=== PATIENT | female | born 1975 | race Caucasian/White ===

== ENCOUNTER 2023-11-07 13:52 | Emergency (ER) | payer BC ==
[2023-11-07 14:14] VITALS: RESP 18
--- NOTE | 2023-11-07 14:45 | ED ---
Extremity Problem HPI - General Chief complaint: Extremity Problem,Nontraumatic Stated complaint: L Leg Pain Time Seen by Provider: 11/07/23 14:10 Source: patient, RN notes reviewed Limitations: no limitations - History of Present Illness Initial comments: 48-year-old female presents emergency department with chief complaint of left leg pain. Patient states she started having some discomfort and noticed that there is some swelling, redness increased warmth. She states the pain initially started behind her left knee. She denies any trauma denies any back pain denies any associated weakness as chest pain or shortness of breath no history of DVT. - Related Data Allergies Allergy/AdvReac Type Severity Reaction Status Date / Time No Known Allergies Allergy Verified 11/07/23 14:04 Review of Systems ROS Statement: Those systems with pertinent positive or pertinent negative responses have been documented in the HPI. ROS Other: All systems not noted in ROS Statement are negative. Past Medical History Past Medical History: No Reported History History of Any Multi-Drug Resistant Organisms: None Reported Past Surgical History: Appendectomy, Section Past Psychological History: No Psychological Hx Reported Smoking Status: Never smoker Past Alcohol Use History: None Reported Past Drug Use History: None Reported General Exam Limitations: no limitations General appearance: alert, in no apparent distress Head exam: Present: atraumatic, normocephalic, normal inspection Eye exam: Present: normal appearance, PERRL, EOMI. Absent: scleral icterus, conjunctival injection, periorbital swelling Respiratory exam: Present: normal lung sounds bilaterally. Absent: respiratory distress, wheezes, rales, rhonchi, stridor Cardiovascular Exam: Present: regular rate, normal rhythm, normal heart sounds. Absent: systolic murmur, diastolic murmur, rubs, gallop, clicks Extremities exam: Present: other (Left leg swelling, tenderness and increased warmth pulses are equal bilaterally varicosities noted on the right leg) Course Vital Signs 11/07/23 11/07/23 11/07/23 13:59 15:08 16:27 Temperature 97.8 F 98.4 F 98.1 F Pulse Rate 109 H 102 H 86 Respiratory 18 18 18 Rate Blood Pressure 172/99 148/98 154/85 O2 Sat by Pulse 93 L 97 99 Oximetry Medical Decision Making - Medical Decision Making Was pt. sent in by a medical professional or institution (, PA, [employer], urgent care, hospital, or skilled nursing...) When possible be specific @ -No Did you speak to anyone other than the patient for history (EMS, parent, family, police, friend...)? What history was obtained from this source @ -No Did you review nursing and triage notes (agree or disagree)? Why? @ -I reviewed and agree with nursing and triage notes Were old charts reviewed (outside hosp., previous admission, EMS record, old EKG, old radiological studies, urgent care reports/EKG's, skilled nursing records)? Report findings @ -No old charts were reviewed Differential Diagnosis (chest pain, altered mental status, abdominal pain women, abdominal pain men, vaginal bleeding, weakness, fever, dyspnea, syncope, headache, dizziness, GI bleed, back pain, seizure, CVA, palpatations, mental health, musculoskeletal)? @ -ED, cellulitis, superficial thrombophlebitis EKG interpreted by me (3pts min.). @ -None X-rays interpreted by me (1pt min.). @ -None done CT interpreted by me (1pt min.). @ -None done U/S interpreted by me (1pt. min.). @ -Ultrasound left leg showing evidence of superficial clot no evidence of DVT What testing was considered but not performed or refused? (CT, X-rays, U/S, la bs)? Why? @ -None What meds were considered but not given or refused? Why? @ -None Did you discuss the management of the patient with other professionals (professionals i.e. , PA, [employer], lab, RT, psych nurse, nursing home social worker, conference center coordinator, teacher, staff mine warfare officer, showcase maker)? Give summary @ -No Was smoking cessation discussed for >3mins.? @ -No Was critical care preformed (if so, how long)? @ -No Were there social determinants of health that impacted care today? How? (Homelessness, low income, unemployed, alcoholism, drug addiction, transportation, low edu. Level, literacy, decrease access to med. care, custodial, rehab)? @ -No Was there de-escalation of care discussed even if they declined (Discuss DNR or withdrawal of care, Hospice)? DNR status @ -No What co-morbidities impacted this encounter? (DM, HTN, Smoking, COPD, CAD, Cancer, CVA, ARF, Chemo, Hep., AIDS, mental health diagnosis, sleep apnea, morbid obesity)? @ -None Was patient admitted / discharged? Hospital course, mention meds given and route, prescriptions, significant lab abnormalities, going to OR and other pertinent info. @ -Discharge patient has left leg pain positive for superficial thrombus patient will be started anti-inflammatories, warm compresses advised to follow-up with PCP patient has multiple varicosities and may require vascular treatment in the future. Undiagnosed new problem with uncertain prognosis? @ -No Drug Therapy requiring intensive monitoring for toxicity (Heparin, Nitro, Insulin, Cardizem)? @ -No Were any procedures done? @ -No Diagnosis/symptom? @ -Superficial thrombophlebitis left leg Acute, or Chronic, or Acute on Chronic? @ -Acute Uncomplicated (without systemic symptoms) or Complicated (systemic symptoms)? @ -Uncomplicated Side effects of treatment? @ -No Exacerbation, Progression, or Severe Exacerbation? @ -No Poses a threat to life or bodily function? How? (Chest pain, [place], [place], pneumonia, PE, COPD, DKA, ARF, appy, cholecystitis, CVA, Diverticulitis, Homicidal, Suicidal, threat to staff... and all critical care pts) @ -No Disposition Clinical Impression: Superficial thrombophlebitis of left leg Disposition: HOME SELF-CARE Condition: Stable Instructions (If sedation given, give patient instructions): Superficial Thrombophlebitis (ED) Additional Instructions: Please return to emergency department for any worsening, changing of symptoms or any other concerns Is patient prescribed a controlled substance at d/c from ED?: No Referrals: None,Stated [Primary Care Provider] - 1-2 days Time of Disposition: 16:19
--- NOTE | 2023-11-07 15:44 | US ---
EXAMINATION TYPE: US venous doppler duplex LE LT DATE OF EXAM: 11/07/2023 3:12 PM COMPARISON: NONE CLINICAL INDICATION: Female, 48 years old with history of pain; Pain x 2 days. No hx of DVT. Patient does not take blood thinners. SIDE PERFORMED: Left TECHNIQUE: The lower extremity deep venous system is examined utilizing real time linear array sonog francoise with graded compression, doppler sonography and color-flow sonography. VESSELS IMAGED: Common Femoral Vein Deep Femoral Vein Greater Saphenous Vein * Femoral Vein Popliteal Vein Small Saphenous Vein * Proximal Calf Veins (* superficial vessels) Left Leg: No evidence of DVT. *Appears positive for SVT within left small saphenous vein at the lev el of the mid calf extending inferior into the lower calf. Color defect and internal echoes seen with in and SSV does not compress. IMPRESSION: 1. Left lower extremity ultrasound negative for deep venous thrombosis. 2. Note is made of thrombus within the superficial left small saphenous vein mid calf region
[2023-11-07 17:07] VITALS: BP 154/85; PULSE 86; TEMP 98.1
== END 2023-11-07 16:28 | disposition home or self-care (01) ==
LOC: EC 13:52
DX: I80.02 Phlebitis and thrombophlebitis of superficial vessels of left lower extremity (principal)
CPT/HCPCS: 99283

== ENCOUNTER → 2024-02-07 | Outpatient (CLI) | payer BC ==
--- NOTE | 2024-02-07 16:53 | US ---
EXAMINATION TYPE: US thyroid st tissue head/neck DATE OF EXAM: 02/07/2024 COMPARISON: NONE CLINICAL INDICATION: Female, 48 years old with history of E05.90 THYROTOXICOSIS; abn labs GLAND SIZE: Right Lobe: 7.1 x 4.5 x 4.5 cm Overall Parenchyma: heterogeneous Left Lobe: 7.7 x 4.0 x 4.3 cm Overall Parenchyma: heterogeneous Isthmus Thickness: 1.3 cm NODULES RIGHT: # of nodules measured on right: Multiple measured cluster inferior. 1. 5.1 X 2.5 x 5.1 cm, lower lateral, solid or almost completely solid, hypoechoic nodule, which i s wider than tall, with smooth margins, without echogenic foci. TR 4. Prior size: no previous LEFT: # of nodules measured on left: Multiple measured cluster inferior. 1. 4.7 X 4.3 x 3.3 cm, lower lateral, solid or almost completely solid, hypoechoic nodule, which is wider than tall, with smooth margins, without echogenic foci. TR 4. Prior size: No previous ISTHMUS: # of nodules measured in the isthmus: 0 Bilateral neck scanned, no evidence of lymphadenopathy. IMPRESSION: Multinodular goiter as described above. ACR TI-RADS LEVEL: TR-RADS 4 - Moderately Suspicious: Follow if > 1 cm, FNA if > 1.5 cm *Highest TI-RADS level nodule reported
== END | disposition home or self-care (01) ==
LOC: RADUSWWP 16:21
PROVIDERS: ATTEND Family Medicine
DX: E05.90 Thyrotoxicosis, unspecified without thyrotoxic crisis or storm (principal); E04.2 Nontoxic multinodular goiter; R22.0 Localized swelling, mass and lump, head
CPT/HCPCS: 76536